=== PATIENT | male | born 2000 | race Caucasian/White ===

== ENCOUNTER 2021-07-28 13:03 | Emergency (ER) | payer OTHER ==
[~2021-07-28] VITALS: Ht 162 cm; Wt 75.0 kg
[2021-07-28] MEDS ORDERED: LIDOCAINE 1% INJ 20 ML 20 ML VIAL INJ ONE (13:15)
[2021-07-28] MEDS ORDERED: TETANUS,DIPTH,PERTUSS P/F (BOOSTRIX) 0.5 ML VIAL IM ONE (13:15)
[2021-07-28 13:47] VITALS: BP 131/80
--- NOTE | 2021-07-28 14:05 | ED Integumentary General ---
General Chief Complaint: Laceration Stated Complaint: LT LITTLE FINGER LAC Nursing Triage Note: PT WAS USING HIS POCKET KNIFE AND CUT THE PAD OF HIS RIGHT FIFTH FINGER. U-SHAPED BLEEDINGIS MINIMAL. History of Present Illness Date Seen by Provider: Jul 28, 2021 Time Seen by Provider: 13:10 Initial Comments 20-year-old male presents with laceration to his left pinky finger. Patient report he was using his pocket knife to cut a box when it slipped and cut his finger. He has an avulsion type laceration of the distal tip. He is unsure when his last tetanus was. He has no other systemic complaints Allergies and Home Medications Allergies Coded Allergies: amoxicillin (Verified Allergy, Unknown, 07/28/21) Patient Home Medication List Home Medication List Reviewed: Yes Review of Systems Review of Systems Constitutional: no symptoms reported EENTM: no symptoms reported Respiratory: no symptoms reported Cardiovascular: no symptoms reported Musculoskeletal: no symptoms reported Skin: see HPI Past Jrlarcp-[id number]-Hmhlwx Hx Patient Social History Tobacco Use?: No Use of E-Cig and/or Vaping dev: No Substance use?: No Alcohol Use?: No Pt feels they are or have been: No Physical Exam Vital Signs Vital Signs - First Documented 07/28/21 13:10 Temp 36.8 Pulse 78 Resp 16 B/P (MAP) 131/80 (97) Pulse Ox 99 O2 Delivery Room Air Capillary Refill : Less Than 3 Seconds General Appearance: WD/WN, no apparent distress Neck: full range of motion Cardiovascular: normal peripheral pulses, regular rate, rhythm Respiratory: lungs clear, normal breath sounds Extremities: normal range of motion, normal capillary refill Neurologic/Psychiatric: alert, normal mood/affect, oriented x 3 Skin Problem Character: other (An approximate 1.5 cm flap laceration of the distal fifth finger of the left hand) Procedures/Interventions Other Wound Location Left fifth finger Wound's Depth, Shape: flap Wound Explored: clean Irrigated w/ Saline (ccs): 500 Betadine Prep?: Yes Anesthesia: 1% Lidocaine Volume Anesthetic (ccs): 5 Suture: Ethlion Suture Size: 5-0 Other Closure Supply: Steri Strip /" Number of Sutures: 5 Sterile Dressing Applied?: Yes Progress Patient tolerated well with no immediate complications Progress/Results/Core Measures Results/Orders My Orders Orders - ANTHONY SNYDER DO Dipht,Pertuss(Acell),Tet Adult (Boostrix (07/28/21 13:15) Lidocaine 1% Inj 20 Ml (Xylocaine 1% Inj (07/28/21 13:15) Medications Given in ED Current Medications Medications Dose Ordered Sig/Pati Route Start Time Stop Time Status Last Admin Dose Admin Diphtheria/ Tetanus/Acell Pertussis 0.5 ml ONCE ONCE IM 07/28/21 13:15 07/28/21 13:16 DC 07/28/21 13:24 0.5 ML Lidocaine HCl 20 ml ONCE ONCE INJ 07/28/21 13:15 07/28/21 13:16 DC 07/28/21 13:23 20 ML Vital Signs/I&O 07/28/21 07/28/21 13:10 13:47 Temp 36.8 36.8 Pulse 78 78 Resp 16 16 B/P (MAP) 131/80 (97) 131/80 Pulse Ox 99 99 O2 Delivery Room Air Room Air Blood Pressure Mean: 97 Departure Impression Primary Impression: Laceration of finger of left hand without foreign body without damage to nail Qualified Codes: S61.217A - Laceration without foreign body of left little finger without damage to nail, initial encounter Disposition: HOME, SELF-CARE Condition: Stable Departure-Patient Inst. Referrals: NO,LOCAL PHYSICIAN (PCP/Family) Primary Care Physician Patient Instructions: Laceration Repair With Stitches ED Add. Discharge Instructions: Keep clean with warm soapy water Tylenol or ibuprofen as needed for pain Keep covered when working outdoors Follow-up in approximately 10 days for suture removal All discharge instructions reviewed with patient and/or family. Voiced understanding. ANTHONY SNYDER DO Jul 28, 2021 14:05
== END 2021-07-28 14:05 | disposition home or self-care (01) ==
LOC: ER FS 13:06
DX: S61.217A Laceration without foreign body of left little finger without damage to nail, initial encounter (principal); Z23 Encounter for immunization; W26.0XXA Contact with knife, initial encounter
CPT/HCPCS: 12041; 90715

== ENCOUNTER 2021-08-07 09:42 | Emergency (ER) | payer OTHER ==
[~2021-08-07] VITALS: Ht 164 cm; Wt 75.0 kg
--- NOTE | 2021-08-07 09:52 | ED Suture Removal/Wound Check ---
Suture/Wound Re-check Suture Removal/Wound Recheck : Suture Removal/Wound Recheck: Sutures removed by RN General Appearance: WD/WN, no apparent distress Neuro/Tendon: normal sensation, normal motor functions, normal tendon functions Skin Exam: normal color, warm/dry Comments 10 days ago - laceration repair R hand 5th digit- healing well without sign of infection Physical Exam Vital Signs Capillary Refill : General Appearance: WD/WN, no apparent distress Neurologic/Psychiatric: no motor/sensory deficits, alert Skin: normal color, warm/dry Departure Impression Primary Impression: Encounter for removal of sutures Disposition: 01 HOME, SELF-CARE Condition: Improved Departure-Patient Inst. Decision time for Depature: 09:51 Referrals: NO,LOCAL PHYSICIAN (PCP/Family) Primary Care Physician Patient Instructions: Stitches Removal MERLIN BROCK DO Aug 07, 2021 09:52
[2021-08-07 09:55] VITALS: BP 126/69
== END 2021-08-07 09:56 | disposition home or self-care (01) ==
LOC: EDUNIT# 09:42 → ER FS 09:43
DX: Z48.02 Encounter for removal of sutures (principal)